=== PATIENT | female | born 1970 | race Two or more races ===

== ENCOUNTER 2019-09-12 21:52 | Emergency (ER) | payer OTHER ==
[~2019-09-12] VITALS: Ht 152.4 cm; Wt 49.1 kg
[2019-09-12 22:21] LABS: BASOPHILS # (AUTO) 0.1 X10'3 (0-0.2); BASOPHILS % (AUTO) 0.8 % (0-1); EOSINOPHILS # (AUTO) 0.2 X10'3 (0-0.9); HEMATOCRIT 40.2 % (35.0-45.0); HEMOGLOBIN 13.9 g/dl (12.0-16.0); LYMPHOCYTES % (AUTO) 40.2 % (21-51); MEAN CORPUSCULAR HEMOGLOBIN 31.4 PG (27.0-31.0); MEAN CORPUSCULAR HGB CONC 34.6 g/dL (33.0-36.5); MEAN CORPUSCULAR VOLUME 90.8 FL (78-98); MEAN PLATELET VOLUME 8.5 FL (7.4-10.4); MONOCYTES # (AUTO) 0.5 X10'3 (0-0.9); MONOCYTES % (AUTO) 7.1 % (2-12); NEUTROPHILS # (AUTO) 3.7 X10'3 (1.8-7.7); NEUTROPHILS % (AUTO) 48.9 % (42-75); PLATELET COUNT 270 X10'3 (140-440); RED BLOOD COUNT 4.43 X10'6 (4.20-5.60); RED CELL DISTRIBUTION WIDTH 12.8 % (11.5-14.5); WHITE BLOOD COUNT 7.5 X10'3 (4.5-11.0)
[2019-09-12 22:35] LABS: ALANINE AMINOTRANSFERASE 30 U/L (12-78); ALBUMIN 3.9 G/DL (3.4-5.0); ALKALINE PHOSPHATASE 94 IU/L (46-116); ANION GAP 10 (8-16); ASPARTATE AMINO TRANSFERASE 32 U/L (10-37); BILIRUBIN,TOTAL 0.2 MG/DL (0.1-1.0); BLOOD UREA NITROGEN 19 MG/DL (7-18); BUN/CREATININE RATIO 25.7 (6.6-38.0); CALCIUM 8.8 MG/DL (8.5-10.1); CHLORIDE 108 MMOL/L (99-107); CREATININE 0.74 MG/DL (0.40-0.90); GLUCOSE 112 MG/DL (70-104); POTASSIUM 3.3 MMOL/L (3.5-5.1); SODIUM 142 MMOL/L (135-145); TOTAL CARBON DIOXIDE 24.4 MMOL/L (24-32); TOTAL PROTEIN 7.8 G/DL (6.4-8.2); eGFR 83 ML/MIN
[2019-09-12 22:39] LABS: PARTIAL THROMBOPLASTIN TIME 26 SECONDS (22-32)
[2019-09-12] MEDS ORDERED: normal saline 1000ML IV soln IVB ONE (22:55)
[2019-09-12] MEDS ORDERED: ketorolac tromethamine 15mg/ml inj. IV ONE (22:55)
[2019-09-12] MEDS ORDERED: ondansetron/PF 4mg/2ml inj IV ONE (22:55)
[2019-09-13 01:38] VITALS: BP 104/66
== END 2019-09-13 01:41 | disposition home or self-care (01) ==
LOC: ER 21:53
DX: R07.89 Other chest pain (principal); R06.02 Shortness of breath; R11.0 Nausea; G43.909 Migraine, unspecified, not intractable, without status migrainosus
CPT/HCPCS: 36415; 71045; 80053; 84484; 85025; 85610; 85730; 96374; 96375; 99284; J1885; J2405; J7030

== ENCOUNTER 2020-04-28 23:50 | Observation (INO) | payer MEDICAID ==
[~2020-04-28] VITALS: Ht 157.5 cm; Wt 47.2 kg
[2020-04-29] MEDS ORDERED: iohexol 350MG/ML 100ml bottle IV ONE (00:27)
[2020-04-29 00:28] LABS: BASOPHILS % (AUTO) 0.3 % (0-1); EOSINOPHILS # (AUTO) 0.1 X10'3 (0-0.9); EOSINOPHILS % (AUTO) 1.8 % (0-6); HEMATOCRIT 39.5 % (35.0-45.0); HEMOGLOBIN 13.5 g/dl (12.0-16.0); LYMPHOCYTES # (AUTO) 3.2 X10'3 (1.1-4.8); LYMPHOCYTES % (AUTO) 40.9 % (21-51); MEAN CORPUSCULAR HEMOGLOBIN 30.9 PG (27.0-31.0); MEAN CORPUSCULAR HGB CONC 34.2 g/dL (33.0-36.5); MEAN CORPUSCULAR VOLUME 90.4 FL (78-98); MONOCYTES # (AUTO) 0.6 X10'3 (0-0.9); MONOCYTES % (AUTO) 7.4 % (2-12); NEUTROPHILS # (AUTO) 3.8 X10'3 (1.8-7.7); NEUTROPHILS % (AUTO) 49.6 % (42-75); PLATELET COUNT 239 X10'3 (140-440); RED BLOOD COUNT 4.37 X10'6 (4.20-5.60); RED CELL DISTRIBUTION WIDTH 12.8 % (11.5-14.5); WHITE BLOOD COUNT 7.7 X10'3 (4.5-11.0)
[2020-04-29 00:36] LABS: ALANINE AMINOTRANSFERASE 22 U/L (12-78); ALBUMIN 3.6 G/DL (3.4-5.0); ALBUMIN/GLOBULIN RATIO 1.1 (1.1-1.5); ALKALINE PHOSPHATASE 87 IU/L (46-116); ANION GAP 9 (8-16); ASPARTATE AMINO TRANSFERASE 18 U/L (10-37); BILIRUBIN,TOTAL 0.3 MG/DL (0.1-1.0); BLOOD UREA NITROGEN 16 MG/DL (7-18); BUN/CREATININE RATIO 18.2 (6.6-38.0); CALCIUM 9.4 MG/DL (8.5-10.1); CHLORIDE 109 MMOL/L (99-107); CREATININE 0.88 MG/DL (0.40-0.90); GLUCOSE 126 MG/DL (70-104); POTASSIUM 3.1 MMOL/L (3.5-5.1); SODIUM 144 MMOL/L (135-145); TOTAL CARBON DIOXIDE 26.5 MMOL/L (24-32); eGFR 68 ML/MIN
[2020-04-29 01:05] LABS: PARTIAL THROMBOPLASTIN TIME 22 SECONDS (22-32)
[2020-04-29 01:37] LABS: CLARITY,URINE CLEAR (Clear); COLOR,URINE YELLOW (Yellow); GLUCOSE, URINE NEGATIVE (Neg); KETONES,URINE NEGATIVE (Neg); LEUKOCYTE ESTERASE ,URINE NEGATIVE (Neg); NITRITES, URINE NEGATIVE (Neg); OCCULT BLOOD,URINE TRACE-INTACT (Neg); PROTEIN,URINE NEGATIVE (Neg); UROBILINOGEN,URINE 0.2 E.U/dL (0.2-1.0)
[2020-04-29 01:40] LABS: UA COLLECTION TYPE CLN CATCH MIDSTREAM
[2020-04-29 01:43] LABS: BACTERIA,URINE NONE SEEN /HPF (Neg); RBC,URINE 0-2 /HPF (0-2); SQUAMOUS EPITHELIAL CELL,UR FEW /LPF (FEW); WBC,URINE NONE SEEN /HPF (0-4)
[2020-04-29] MEDS ORDERED: ondansetron/PF 4mg/2ml inj IV PRN (01:45)
[2020-04-29] MEDS ORDERED: HYDROcodone/acetaminophen 5mg/325mg tablet PO PRN (01:45)
[2020-04-29] MEDS ORDERED: magnesium Cl slow-release 64mg tablet PO PRN (01:45)
[2020-04-29] MEDS ORDERED: magnesium hydroxide 30ml (MOM) UD suspension PO PRN (01:45)
[2020-04-29] MEDS ORDERED: acetaminophen 325mg tablet PO PRN (01:45)
[2020-04-29] MEDS ORDERED: magnesium 4gm in 100ml NS 100 ML IV PRN (01:45)
[2020-04-29] MEDS ORDERED: potassium Cl 20 mEq SR tablet PO PRN ×2 (01:45)
[2020-04-29] MEDS ORDERED: bisacodyl 10mg suppository rectal RC PRN (01:45)
[2020-04-29] MEDS ORDERED: mag hydrox/Alum hydrox/simeth 30ml oral suspension PO PRN (01:45)
[2020-04-29] MEDS ORDERED: potassium CL 10mEq/100ml bag 100 ML IV PRN ×2 (01:45)
[2020-04-29] MEDS ORDERED: magnesium 2GM in 50ml NS 50 ML IV PRN (01:45)
[2020-04-29] MEDS ORDERED: NAPR-996 PO (01:49)
[2020-04-29] MEDS ORDERED: SUMA100T PO (01:49)
--- NOTE | 2020-04-29 03:20 | NUR ---
Patient's son reported to nurse that pt's daughter witnessed "twitching" at home during her syncope episode at home.
[2020-04-29 07:21] VITALS: BP 102/66
[2020-04-29] MEDS: docusate sod 100mg capsule PO SCH ×2 (07:30→19:19)
[2020-04-29] MEDS: K and/or MAG REPLACEMENT MC SCH ×2 (07:31→20:00)
[2020-04-29 14:07] VITALS: BP 93/55
[2020-04-29 18:00] VITALS: BP 103/66
[2020-04-29 22:00] VITALS: BP 98/63
[2020-04-30 02:00] VITALS: BP 99/65
--- NOTE | 2020-04-30 03:41 | NUR ---
pt requested "something stronger" than tylenol for severe headache. one Conroy 5/325 administered with ice pack for back of neck. will continue to monitor for relief.
[2020-04-30 06:30] VITALS: BP 91/47
--- NOTE | 2020-04-30 06:43 | NUR ---
REPORT GIVEN TO NASIM CARRION.
--- NOTE | 2020-04-30 06:52 | NUR ---
Patient in room [facility]. I have received report from Cecile ROUSE and had the opportunity to ask questions and assume patient care.
[2020-04-30] MEDS: docusate sod 100mg capsule PO SCH (07:30)
[2020-04-30] MEDS: K and/or MAG REPLACEMENT MC SCH (08:00)
--- NOTE | 2020-04-30 08:07 | NUR ---
Problems reprioritized. Patient report given, questions answered & plan of care reviewed with Keli ROUSE.
[2020-04-30 09:56] LABS: BASOPHILS % (AUTO) 0.4 % (0-1); EOSINOPHILS % (AUTO) 0.7 % (0-6); HEMATOCRIT 40.5 % (35.0-45.0); HEMOGLOBIN 13.6 g/dl (12.0-16.0); LYMPHOCYTES # (AUTO) 1.8 X10'3 (1.1-4.8); LYMPHOCYTES % (AUTO) 24.9 % (21-51); MEAN CORPUSCULAR HEMOGLOBIN 30.6 PG (27.0-31.0); MEAN CORPUSCULAR HGB CONC 33.6 g/dL (33.0-36.5); MEAN CORPUSCULAR VOLUME 91.1 FL (78-98); MEAN PLATELET VOLUME 9.3 FL (7.4-10.4); MONOCYTES # (AUTO) 0.3 X10'3 (0-0.9); MONOCYTES % (AUTO) 3.7 % (2-12); NEUTROPHILS # (AUTO) 5.2 X10'3 (1.8-7.7); NEUTROPHILS % (AUTO) 70.3 % (42-75); PLATELET COUNT 236 X10'3 (140-440); RED BLOOD COUNT 4.44 X10'6 (4.20-5.60); RED CELL DISTRIBUTION WIDTH 12.9 % (11.5-14.5); WHITE BLOOD COUNT 7.3 X10'3 (4.5-11.0)
[2020-04-30 10:00] VITALS: BP 106/68
[2020-04-30 10:11] LABS: ALANINE AMINOTRANSFERASE 25 U/L (12-78); ALBUMIN 3.6 G/DL (3.4-5.0); ALBUMIN/GLOBULIN RATIO 1.1 (1.1-1.5); ALKALINE PHOSPHATASE 77 IU/L (46-116); ANION GAP 6 (8-16); ASPARTATE AMINO TRANSFERASE 18 U/L (10-37); BILIRUBIN,TOTAL 0.4 MG/DL (0.1-1.0); BLOOD UREA NITROGEN 14 MG/DL (7-18); BUN/CREATININE RATIO 20.6 (6.6-38.0); CALCIUM 9.1 MG/DL (8.5-10.1); CHLORIDE 106 MMOL/L (99-107); CREATININE 0.68 MG/DL (0.40-0.90); GLUCOSE 142 MG/DL (70-104); MAGNESIUM 1.9 MG/DL (1.5-2.4); PHOSPHORUS 3.4 MG/DL (2.3-4.5); POTASSIUM 3.8 MMOL/L (3.5-5.1); SODIUM 141 MMOL/L (135-145); eGFR > 90 ML/MIN
[2020-04-30] MEDS ORDERED: normal saline 1000ml 1,000 ML IV ONE (11:05)
--- NOTE | 2020-04-30 12:45 | NUR ---
Patient discharged with son. She was educated to stay hydrated and to follow up with primary care within a week. No new medications prescribed.
== END 2020-04-30 12:45 | disposition home or self-care (01) ==
LOC: ER 23:51 → ED HOLD 04-29 01:51 → ORTHO 4S 04-29 06:25
PROVIDERS: ADMIT Family Medicine; ATTEND Internal Medicine
DX: R55 Syncope and collapse (principal); R41.0 Disorientation, unspecified; R20.0 Anesthesia of skin; R32 Unspecified urinary incontinence; G43.909 Migraine, unspecified, not intractable, without status migrainosus; Z79.899 Other long term (current) drug therapy; W18.39XA Other fall on same level, initial encounter; Y93.89 Activity, other specified; Y92.009 Unspecified place in unspecified non-institutional (private) residence as the place of occurrence of the external cause
CPT/HCPCS: 36415; 70450; 70496; 70498; 70544; 70551; 71045; 80053; 81001; 83735; 84100; 84484; 85025; 85610; 85730; 86885; 86900; 86901; 87081; 93005; 93306; 95816; 96360; 97161; 97530; 99291; G0378; J7030; Q9967

== ENCOUNTER 2020-06-05 09:46 | Emergency (ER) | payer MEDICAID ==
[~2020-06-05] VITALS: Ht 162.6 cm; Wt 60.0 kg
[~2020-06-05 09:46] MED LIST: NAPR-996 PO; SUMA100T PO
[2020-06-05] MEDS ORDERED: normal saline 1000ml 1,000 ML IV ONE (10:10)
[2020-06-05 10:43] LABS: BASOPHILS % (AUTO) 0.9 % (0-1); EOSINOPHILS # (AUTO) 0.1 X10'3 (0-0.9); EOSINOPHILS % (AUTO) 1.8 % (0-6); HEMATOCRIT 40.5 % (35.0-45.0); HEMOGLOBIN 13.8 g/dl (12.0-16.0); LYMPHOCYTES # (AUTO) 2.3 X10'3 (1.1-4.8); MEAN CORPUSCULAR HEMOGLOBIN 30.9 PG (27.0-31.0); MEAN CORPUSCULAR HGB CONC 34.2 g/dL (33.0-36.5); MEAN CORPUSCULAR VOLUME 90.3 FL (78-98); MONOCYTES # (AUTO) 0.4 X10'3 (0-0.9); MONOCYTES % (AUTO) 6.8 % (2-12); NEUTROPHILS # (AUTO) 2.6 X10'3 (1.8-7.7); NEUTROPHILS % (AUTO) 48.5 % (42-75); PLATELET COUNT 241 X10'3 (140-440); RED BLOOD COUNT 4.49 X10'6 (4.20-5.60); RED CELL DISTRIBUTION WIDTH 12.6 % (11.5-14.5); WHITE BLOOD COUNT 5.5 X10'3 (4.5-11.0)
[2020-06-05 10:45] LABS: CLARITY,URINE CLOUDY (Clear); COLOR,URINE YELLOW (Yellow); GLUCOSE, URINE NEGATIVE (Neg); KETONES,URINE NEGATIVE (Neg); LEUKOCYTE ESTERASE ,URINE SMALL (Neg); NITRITES, URINE POSITIVE (Neg); OCCULT BLOOD,URINE TRACE-INTACT (Neg); PROTEIN,URINE NEGATIVE (Neg)
[2020-06-05 10:46] LABS: UA COLLECTION TYPE CLN CATCH MIDSTREAM
[2020-06-05 10:56] LABS: MUCUS STRANDS FEW /LPF (Neg); SQUAMOUS EPITHELIAL CELL,UR FEW /LPF (FEW)
[2020-06-05 10:57] LABS: BACTERIA,URINE 3+ /HPF (Neg)
[2020-06-05 10:59] LABS: ALANINE AMINOTRANSFERASE 21 U/L (12-78); ALKALINE PHOSPHATASE 86 IU/L (46-116); ANION GAP 7 (8-16); ASPARTATE AMINO TRANSFERASE 21 U/L (10-37); BILIRUBIN,TOTAL 0.7 MG/DL (0.1-1.0); CHLORIDE 106 MMOL/L (99-107); GLUCOSE 85 MG/DL (70-104); LIPASE 145 U/L (73-393); MAGNESIUM 2.1 MG/DL (1.5-2.4); POTASSIUM 3.8 MMOL/L (3.5-5.1); SODIUM 141 MMOL/L (135-145); TOTAL CARBON DIOXIDE 28.1 MMOL/L (24-32); TOTAL PROTEIN 7.5 G/DL (6.4-8.2)
[2020-06-05] MEDS ORDERED: proCHLORperazine 10 MG/2 ml inj IV ONE (11:15)
[2020-06-05] MEDS ORDERED: diphenhydrAMINE 50 mg/ml inj IV ONE (11:15)
[2020-06-05 11:30] LABS: ALBUMIN 3.9 G/DL (3.4-5.0); ALBUMIN/GLOBULIN RATIO 1.1 (1.1-1.5); BLOOD UREA NITROGEN 12 MG/DL (7-18); CALCIUM 9.3 MG/DL (8.5-10.1); CREATININE 0.86 MG/DL (0.40-0.90); eGFR 70 ML/MIN
[2020-06-05] MEDS ORDERED: CEPH250T PO (12:07)
[2020-06-05 12:15] VITALS: BP 107/72
== END 2020-06-05 12:25 | disposition home or self-care (01) ==
LOC: ER 09:46
DX: G43.909 Migraine, unspecified, not intractable, without status migrainosus (principal); N39.0 Urinary tract infection, site not specified; R55 Syncope and collapse; Z79.899 Other long term (current) drug therapy
CPT/HCPCS: 36415; 71045; 80053; 81001; 83690; 83735; 84484; 85025; 87077; 87088; 87186; 93005; 96374; 96375; 99285; J0780; J1200; J7030; 96361

== ENCOUNTER 2021-02-14 10:40 | Emergency (ER) | payer MEDICAID, OTHER ==
[~2021-02-14] VITALS: Ht 149.9 cm; Wt 43.5 kg
[2021-02-14] MEDS ORDERED: nitroGLYCERIN 0.4mg SUBLingual tab SL PRN (11:05)
[2021-02-14] MEDS ORDERED: aspirin 81mg tab.chew PO ONE (11:05)
[2021-02-14 11:31] LABS: BASOPHILS # (AUTO) 0.1 X10'3 (0-0.2); BASOPHILS % (AUTO) 0.8 % (0-1); EOSINOPHILS # (AUTO) 0.1 X10'3 (0-0.9); EOSINOPHILS % (AUTO) 1.2 % (0-6); HEMATOCRIT 40.7 % (35.0-45.0); HEMOGLOBIN 13.9 g/dl (12.0-16.0); LYMPHOCYTES # (AUTO) 2.1 X10'3 (1.1-4.8); LYMPHOCYTES % (AUTO) 28.9 % (21-51); MEAN CORPUSCULAR HEMOGLOBIN 30.6 PG (27.0-31.0); MEAN CORPUSCULAR HGB CONC 34.2 g/dL (33.0-36.5); MEAN CORPUSCULAR VOLUME 89.7 FL (78-98); MEAN PLATELET VOLUME 8.8 FL (7.4-10.4); MONOCYTES # (AUTO) 0.4 X10'3 (0-0.9); MONOCYTES % (AUTO) 4.7 % (2-12); NEUTROPHILS # (AUTO) 4.8 X10'3 (1.8-7.7); NEUTROPHILS % (AUTO) 64.4 % (42-75); PLATELET COUNT 255 X10'3 (140-440); RED BLOOD COUNT 4.53 X10'6 (4.20-5.60); RED CELL DISTRIBUTION WIDTH 12.5 % (11.5-14.5); WHITE BLOOD COUNT 7.4 X10'3 (4.5-11.0)
[2021-02-14 11:44] LABS: ALANINE AMINOTRANSFERASE 25 U/L (12-78); ALBUMIN 3.8 G/DL (3.4-5.0); ALKALINE PHOSPHATASE 103 IU/L (46-116); ANION GAP 9 (8-16); ASPARTATE AMINO TRANSFERASE 18 U/L (10-37); BILIRUBIN,TOTAL 0.5 MG/DL (0.1-1.0); BLOOD UREA NITROGEN 13 MG/DL (7-18); BUN/CREATININE RATIO 15.5 (6.6-38.0); CALCIUM 9.6 MG/DL (8.5-10.1); CHLORIDE 108 MMOL/L (99-107); CREATININE 0.84 MG/DL (0.40-0.90); GLUCOSE 72 MG/DL (70-104); POTASSIUM 3.4 MMOL/L (3.5-5.1); SODIUM 145 MMOL/L (135-145); TOTAL CARBON DIOXIDE 28.1 MMOL/L (24-32); TOTAL PROTEIN 7.6 G/DL (6.4-8.2); eGFR 71 ML/MIN
[2021-02-14] MEDS ORDERED: OMEP40CA13 PO (12:15)
[2021-02-14 12:25] VITALS: BP 101/65
== END 2021-02-14 12:27 | disposition home or self-care (01) ==
LOC: ER 10:41
DX: R07.89 Other chest pain (principal); R10.13 Epigastric pain; R06.02 Shortness of breath; G43.909 Migraine, unspecified, not intractable, without status migrainosus; Z79.899 Other long term (current) drug therapy
CPT/HCPCS: 36415; 71045; 71046; 80053; 83880; 84484; 85025; 93005; 99285

== ENCOUNTER 2021-09-12 21:30 | Emergency (ER) | payer SELFPAY ==
[~2021-09-12] VITALS: Ht 149.9 cm; Wt 47.3 kg
[2021-09-12 22:55] VITALS: BP 109/69
== END 2021-09-13 05:00 | disposition home or self-care (01) ==
LOC: ER 21:30
DX: R51.9 Headache, unspecified (principal); G43.909 Migraine, unspecified, not intractable, without status migrainosus
CPT/HCPCS: 70450; 93005; 99284

== ENCOUNTER 2024-05-11 18:12 | Emergency (ER) | payer OTHER ==
[~2024-05-11] VITALS: Ht 152.4 cm; Wt 48.4 kg
[2024-05-11 18:13] VITALS: BP 121/63; PULSE 73; TEMP 97.7; O2SAT 100
[2024-05-11 19:00] LABS: BASOPHILS # (AUTO) 0.1 X10'3 (0-0.2); BASOPHILS % (AUTO) 0.8 % (0-1); EOSINOPHILS # (AUTO) 0.2 X10'3 (0-0.9); EOSINOPHILS % (AUTO) 2.3 % (0-6); HEMATOCRIT 40.1 % (35.0-45.0); HEMOGLOBIN 13.8 g/dl (12.0-16.0); LYMPHOCYTES # (AUTO) 2.2 X10'3 (1.1-4.8); LYMPHOCYTES % (AUTO) 28.2 % (21-51); MEAN CORPUSCULAR HEMOGLOBIN 30.8 PG (27.0-31.0); MEAN CORPUSCULAR HGB CONC 34.5 g/dL (33.0-36.5); MEAN CORPUSCULAR VOLUME 89.4 FL (78-98); MEAN PLATELET VOLUME 8.6 FL (7.4-10.4); MONOCYTES # (AUTO) 0.4 X10'3 (0-0.9); NEUTROPHILS % (AUTO) 63.7 % (42-75); PLATELET COUNT 260 X10'3 (140-440); RED BLOOD COUNT 4.49 X10'6 (4.20-5.60); RED CELL DISTRIBUTION WIDTH 12.9 % (11.5-14.5); WHITE BLOOD COUNT 7.9 X10'3 (4.5-11.0)
[2024-05-11 19:01] LABS: BILIRUBIN,URINE NEGATIVE (Neg); CLARITY,URINE CLOUDY (Clear); COLOR,URINE YELLOW (Yellow); GLUCOSE, URINE NEGATIVE (Neg); KETONES,URINE NEGATIVE (Neg); LEUKOCYTE ESTERASE ,URINE LARGE (Neg); NITRITES, URINE POSITIVE (Neg); OCCULT BLOOD,URINE TRACE-INTACT (Neg); PH,URINE 6.5 (4.8-8.0); PROTEIN,URINE NEGATIVE (Neg)
[2024-05-11 19:03] LABS: URINE HCG NEGATIVE (NEG)
[2024-05-11 19:06] LABS: UA COLLECTION TYPE CLN CATCH MIDSTREAM
[2024-05-11 19:08] LABS: SQUAMOUS EPITHELIAL CELL,UR FEW /LPF (FEW)
[2024-05-11 19:09] LABS: BACTERIA,URINE 4+ /HPF (Neg); RENAL CELLS, URINE FEW /HPF; WBC,URINE 50-100 /HPF (0-4)
[2024-05-11 19:12] LABS: ALANINE AMINOTRANSFERASE 37 U/L (12-78); ALBUMIN 3.8 G/DL (3.4-5.0); ALBUMIN/GLOBULIN RATIO 0.9 (1.1-1.5); ALKALINE PHOSPHATASE 111 IU/L (46-116); ANION GAP 9 (8-16); ASPARTATE AMINO TRANSFERASE 22 U/L (10-37); BILIRUBIN,TOTAL 0.5 MG/DL (0.1-1.0); BLOOD UREA NITROGEN 10 MG/DL (7-18); BUN/CREATININE RATIO 9.9 (10.0-20.0); CALCIUM 9.7 MG/DL (8.5-10.1); CHLORIDE 105 MMOL/L (99-107); CREATININE 1.01 MG/DL (0.40-0.90); GLUCOSE 120 MG/DL (70-104); LIPASE 43 U/L (16-77); POTASSIUM 3.3 MMOL/L (3.5-5.1); SODIUM 140 MMOL/L (135-145); TOTAL CARBON DIOXIDE 26.3 MMOL/L (24-32); TOTAL PROTEIN 7.9 G/DL (6.4-8.2); eCRCL 45 ML/MIN; eGFR 57 ML/MIN
[2024-05-11 19:26] VITALS: RESP 22
[2024-05-11] MEDS: ketorolac tromethamine 15mg/ml inj. IM ONE (19:26)
[2024-05-11] MEDS ORDERED: LEVO-65 PO (19:42)
== END 2024-05-11 20:06 | disposition home or self-care (01) ==
LOC: ER 18:13
DX: N10 Acute pyelonephritis (principal); R30.0 Dysuria; Z79.899 Other long term (current) drug therapy
CPT/HCPCS: 36415; 80053; 81001; 81025; 83690; 85025; 87077; 87088; 87186; 96372; 99283; J1885